=== PATIENT | male | born 1945 | race Caucasian/White ===

== ENCOUNTER → 2020-01-03 | Outpatient (CLI) | payer MEDICARE ==
[~2020-01-03] MED LIST: ASPI-496 PO; GLIM4TAB8 PO; HYDR12.575 PO; LOSA50TA14 PO; MELA5TAB14 PO; REGADENOSON 0.4 MG/5 ML SYRINGE ONE; TAMS-11 PO
== END | disposition home or self-care (01) ==
LOC: CFH 12:00
PROVIDERS: ATTEND Internal Medicine Cardiovascular Disease
DX: I25.9 Chronic ischemic heart disease, unspecified (principal); I10 Essential (primary) hypertension; I48.91 Unspecified atrial fibrillation; I21.29 ST elevation (STEMI) myocardial infarction involving other sites
CPT/HCPCS: 78452; 93017; A9502; J2785

== ENCOUNTER 2020-02-07 10:46 | Day surgery (SDC) | payer MEDICARE ==
[~2020-02-07] VITALS: Ht 175.3 cm; Wt 94.1 kg
[~2020-02-07 10:46] MED LIST changes: -REGADENOSON 0.4 MG/5 ML SYRINGE ONE
[2020-02-07 11:25] VITALS: BP 144/67
[2020-02-07] MEDS ORDERED: VARE1TAB21 PO (11:34)
[2020-02-07] MEDS ORDERED: FINA5TAB4 PO (11:34)
[2020-02-07] MEDS ORDERED: BIVALIRUDIN 250 MG ONE (11:53)
[2020-02-07] MEDS ORDERED: MIDAZOLAM 1 MG/ML, 2ML ONE (11:53)
[2020-02-07] MEDS ORDERED: FENTANYL PF 100 MCG/2ML ONE (11:53)
[2020-02-07] MEDS ORDERED: LIDOCAINE-MPF 1%, 5ML ONE (11:53)
[2020-02-07] MEDS ORDERED: HEPARIN 1,000 UNITS/ML, 10ML ONE (11:53)
[2020-02-07] MEDS ORDERED: TICAGRELOR 90 MG TABLET ONE (11:53)
[2020-02-07] MEDS ORDERED: VERAPAMIL 2.5 MG/ML, 2ML ONE (11:53)
[2020-02-07 12:03] LABS: BASOPHILS # (AUTO) 0.03 x10^3/uL (0-0.1); BASOPHILS % (AUTO) 1 % (0-1); EOSINOPHILS # (AUTO) 0.16 x10^3/uL (0-0.4); EOSINOPHILS % (AUTO) 4 % (1-7); LYMPHOCYTES # (AUTO) 0.39 x10^3/uL (1-3.4); LYMPHOCYTES % (AUTO) 9 % (22-44); MD NO; MEAN CORPUSCULAR HEMOGLOBIN 30.5 pg (27.5-34.5); MEAN CORPUSCULAR HGB CONC 34.3 g/dL (33.2-36.2); MEAN PLATELET VOLUME 10.6 fL (7.4-10.4); MONOCYTES # (AUTO) 0.46 x10^3/uL (0.2-0.8); MONOCYTES % (AUTO) 10 % (2-9); NEUTROPHILS # (AUTO) 3.41 x10^3/uL (1.8-6.8); NEUTROPHILS % (AUTO) 77 % (42-75); PLATELET COUNT 137 x10^3/uL (130-400); RED BLOOD COUNT 4.92 x10^6/uL (4.38-5.82); RED CELL DISTRIBUTION WIDTH 16.3 % (9.4-14.8)
[2020-02-07 12:13] LABS: ANION GAP 8 mmol/L (5-15); CALCIUM 9.1 mg/dL (8.5-10.1); CHLORIDE 107 mmol/L (98-107); CREATININE 1.43 mg/dL (0.7-1.3)
[2020-02-07] MEDS ORDERED: SODIUM CHLORIDE 0.9% 1,000 ML IV SCH (13:00)
[2020-02-07] MEDS ORDERED: ACETAMINOPHEN 325 MG TABLET ONE (14:02)
[2020-02-07] MEDS ORDERED: ACETAMINOPHEN 325 MG TABLET PO PRN (14:30)
== END 2020-02-07 14:29 | disposition home or self-care (01) ==
LOC: CACL 10:46
PROVIDERS: ATTEND Internal Medicine Cardiovascular Disease
DX: I25.10 Atherosclerotic heart disease of native coronary artery without angina pectoris (principal); I77.1 Stricture of artery; I12.9 Hypertensive chronic kidney disease with stage 1 through stage 4 chronic kidney disease, or unspecified chronic kidney disease; E11.22 Type 2 diabetes mellitus with diabetic chronic kidney disease; N18.9 Chronic kidney disease, unspecified; E78.2 Mixed hyperlipidemia; F17.210 Nicotine dependence, cigarettes, uncomplicated; Z79.82 Long term (current) use of aspirin; Z79.84 Long term (current) use of oral hypoglycemic drugs; Z79.899 Other long term (current) drug therapy; Z88.0 Allergy status to penicillin; Z88.8 Allergy status to other drugs, medicaments and biological substances; Z95.0 Presence of cardiac pacemaker
CPT/HCPCS: 36415; 80048; 85025; 93458; 99156; C1769; C1894; J0583; J1644; J2250; J3010; Q9967